=== PATIENT | female | born 2000 | race African-American/Black ===

== ENCOUNTER 2022-02-23 14:53 | Emergency (ER) | payer OTHER ==
--- OUTSIDE RECORDS SUMMARY | 2022-02-23 14:58 | XMS REPORT | Continuity of Care Document ---
:2000 Author Organization [facility] [place] t Address [address] [place] [address] Care Team Providers Name Role Phone SARA NUNEZ Primary Care Physician Unavailable Zuri Mr. Brandon Attending Clinician Unavailable KATE BAZZI Attending Clinician Unavailable MICHI COPPOLA Attending Clinician Unavailable Michi Herrera Attending Clinician DANIAL SARAVIA Attending Clinician Unavailable ALEYDA HARPER Attending Clinician Unavailable ALEYDA HARPER Attending Clinician Unavailable SARA NUNEZ Attending Clinician Unavailable RUDI NDIAYE Attending Clinician Unavailable Rudi Moody Attending Clinician ARIS DIAZ Attending Clinician Unavailable Kate Bazzi MD Attending Clinician KEERTHI ALEXANDER Attending Clinician Unavailable Keerthi Alexander DO Attending Clinician PHYLLIS HAWTHORNE Attending Clinician Unavailable Albertina Paniagua PA-C Attending Clinician Lory Jane MD Attending Clinician Phyllis Hawthorne MD Attending Clinician Naheed Contreras MD Attending Clinician [phone] Nurse, [facility] Attending Clinician Unavailable Yarima MD, Wakili S Attending Clinician JAYME VICENTE S Attending Clinician Unavailable Doctor Unassigned, [place] Attending Clinician Unavailable Weston CHAVEZP, Rose Key Attending Clinician Chandan ASSISTANT STORE MANAGER, Lobito B Attending Clinician Leo Soares DO Attending Clinician 2, [facility] Attending Clinician Unavailable Aris Diaz MD Attending Clinician DOMINGA POTTS Attending Clinician Unavailable Clau ASSISTANT STORE MANAGER, Dominga Attending Clinician [phone] ISABEL REBOLLAR Attending Clinician Unavailable ISABEL REBOLLAR Attending Clinician Unavailable Alexi Trejo Attending Clinician Triston ASSISTANT STORE MANAGER, Mg Attending Clinician Faustino Lawton MD Attending Clinician Grupo Chang DO Attending Clinician Provider, [facility] Care Attending Clinician Unavailable MG COLLADO Attending Clinician Unavailable Rey TURPIN, Juju S Attending Clinician Unavailable FAUSTINO LAWTON Attending Clinician Unavailable NAHEED CONTRERAS Attending Clinician Unavailable ELIAN GALINDO Attending Clinician Unavailable WINSTON COCHRAN Attending Clinician Unavailable Kali PORTER, Tania Quiroz Attending Clinician Winston Cochran MD Attending Clinician Ted Kat MD Attending Clinician Lopez Ramos MD Attending Clinician Unknown, Attending Attending Clinician Unavailable UNKNOWN, ATTENDING Attending Clinician Unavailable JANKI RODRIGUEZ Attending Clinician Unavailable LUCIUS SIMENTAL Attending Clinician Unavailable Lucius Simental APN Attending Clinician Dany Saldana MD Attending Clinician Humphrey Sanchez MD Attending Clinician MICHI COPPOLA Admitting Clinician Unavailable WINSTON COCHRAN Admitting Clinician Unavailable Winston Cochran MD Admitting Clinician LUCIUS SIMENTAL Admitting Clinician Unavailable Payers Payer Name Policy Type Policy Number Effective Date Expiration Date Samuel cochran [facility] [id number] 2017 00:00:00 [employer] PPO I [id number] 2019 00:00:00 Problems Condition Condition Condition Status Onset Resolution Last Treating Co mments Source Name Details Category Date Date Treatment Clinician Date Essential Essential Disease Active Uni vers hypertensi hypertensi 930 it y of on on 00:00: [place] 00 Medical Branch Urinary Urinary Disease Active Univers tract tract 30 [place] infection [place] without without 00 Medical hematuria, hematuria, Br anch site site unspecifie unspecifie d d CAMARILLO CAMARILLO Disease Active Univers (nonalcoho (nonalcoho 02-08 it y of lic lic 00:00: [place] steatohepa steatohepa 00 Az dical titis) titis) Branch Eczema, Eczema, Disease Active Univers unspecifie unspecifie 02-08 it y of d type d type 00:00: [place] 00 Medical Branch Anxiety Anxiety Disease Active Univers and and 930 it[place] of depression [place] Pap smear Pap smear Disease Active Uni vers for for 930 ity of cervical cervical 00:00: [place] cancer cancer 00 Medical screening screening Bran ch HPV HPV Disease Active [facility] vaccine vaccine 30 ity of counseling counseling [place] Need for Need for Disease Active Unive rs Tdap Tdap 30 ity of vaccinatio vaccinatio 00:[place] 00 Medical Branch Body mass Body mass Disease Active Uni vers index index 9-30 ity of (BMI) (BMI) 00:00: [place] 45.0-49.9, 45.0-49.9, 00 Az dical adult adult Branch Need for Need for Disease Active Unive rs influenza influenza 9-30 ity of vaccinatio vaccinatio 00:[place] 00 Medical [place] Acute Acute Disease Active Univers appendicit appendicit 5-24 it y of is is 00:00: [place] 00 Medical Branch Intentiona Intentiona Disease Active 2017-05 U nivers l drug l drug 2-12 ity of overdose, overdose, 00:00: Luis Fernando stallings initial initial 00 Medical encounter encounter Bran ch 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, disorder, 00:00: [place] stallings recurrent recurrent 00 [facility] episode, episode, Branch moderate moderate Social Social Disease Active Univers phobia phobia 9-27 ity of 00:00: [place] 00 Medical Branch Morbid Morbid Disease Active Univers obesity obesity 3-14 ity of with body with body 00:00: [place] Fernando stallings mass index mass index 00 Me dical of of Branch 40.0-49.9 40.0-49.9 Intentiona Intentiona Disease Active U nivers l overdose l overdose 3-14 it y of of drug in of drug in [place] tablet tablet 00 Medical form form Branch Severe Severe Disease Active Univers single single 3-14 ity of current current 00:00: [place] episode of episode of 00 Me dical major major Branch depressive depressive disorder, disorder, without without psychotic psychotic features features Allergies, Adverse Reactions, Alerts Allergy Allergy Status Severity Reaction(s) Onset Inactive Treating Comm ents Source Name Type Date Date Clinician Peanut Propensi Active Hives 2016-05 Univers ty to 2-22 ity of adverse 00:00: [place] reaction 00 Medical s Branch PEANUT DRUG Active Hives 2016-05 Univers INGREDI 2-22 ity of 00:00: [place] 00 Medical Branch Social History Social Habit Start Date Stop Date Quantity Comments Source Alcohol intake 2021-12-29 2021-12-29 Current University of 00:00:00 00:00:00 non-drinker of [facility] alcohol (finding) Branch Exposure to 2021-09-23 2021-10-03 Not sure [facility] SARS-CoV-2 00:00:00 13:24:00 [place] Medical (event) Branch History SDOH 2019-10-04 2019-10-04 4 University o f Financial 00:00:00 00:00:00 [place] [facility] History SDNE Food 2019-10-04 2019-10-04 1 Univers ity of Worry 00:00:00 00:00:00 [place] [facility] History [facility] Food 2019-10-04 2019-10-04 1 Univers ity of Scarcity 00:00:00 00:00:00 [place] [facility] History [facility] 2019-10-04 2019-10-04 2 University o f Transport Med 00:00:00 00:00:00 [facility] Branch History [facility] 2019-10-04 2019-10-04 2 University o f Transport Non-Med 00:00:00 [facility]:00 [facility] [place] Tobacco use and 2017-07-23 2017-07-23 Smokeless tobacco Un iversity of exposure 00:00:00 00:00:[address] [facility] Sex Assigned At [birth year] Universit y of 00:00:00 00:00:00 [facility] Smoking Status Start Date Stop Date Source Never smoked tobacco [facility] Medications Ordered Filled Start Stop Current Ordering Indication Dosage Frequency Signature Comments Components Source Medication Medication Date Date Medication? Clinician (SIG) Name Name ketorolac 2021- No 30mg 30 mg, Unive rs (TORADOL) 12-29 Intramuscu ity of injection 23:00: 22:58 [place], ONCE, [place] 30 mg 00 :00 1 dose, On Medical Sat Branch 12/29/21 at 1800, JUAN ondansetron Yes [id number] 4mg Take 1 Univers 4 mg 5-25 tablet by ity of disintegrat 00:00: mouth [place] ing tablet 00 every 8 Medica l (eight) Branch hours as needed for Nausea and Vomiting (N/V). ondansetron Yes [id number] 4mg Take 1 Univers 4 mg 5-25 tablet by ity of disintegrat 00:00: mouth [place] ing tablet 00 every 8 Medica l (eight) Branch hours as needed for Nausea and Vomiting (N/V). fluconazole 2020-05- No [id number] 150mg Take 1 Univers 150 mg 06-02 tablet by ity of tablet 00:00: 05:59 [place] 00 :[place] now for 1 Medical dose. Branch benzonatate 2020- No [id number] 100mg Take 1 Univers 100 mg 12-18 capsule by ity of capsule 00:00: 00:00 mouth 3 [place] 00 :00 (three) Medical times Branch daily as needed for Cough. AMLODIPINE- 2020-0 Yes [id number] TAKE 1 Univers BENAZEPRIL 6-30 CAPSULE BY ity of 10-20 mg 00:00: MOUTH [place] per capsule 00 EVERY DAY Med ical Branch AMLODIPINE- 2020-0 Yes [id number] TAKE 1 Univers BENAZEPRIL 6-30 CAPSULE BY ity of 10-20 mg 00:00: MOUTH [place] per capsule 00 EVERY DAY Med ical Branch AMLODIPINE- 2020-0 Yes [id number] TAKE 1 Univers BENAZEPRIL 6-30 CAPSULE BY ity of 10-20 mg 00:00: MOUTH [place] per capsule 00 EVERY DAY Med ical Branch AMLODIPINE- 2020-0 Yes [id number] TAKE 1 Univers BENAZEPRIL 6-30 CAPSULE BY ity of 10-20 mg 00:00: MOUTH [place] per capsule 00 EVERY DAY Med ical Branch AMLODIPINE- 2020-0 Yes [id number] TAKE 1 Univers BENAZEPRIL 6-30 CAPSULE BY ity of 10-20 mg 00:00: MOUTH [place] per capsule 00 EVERY DAY Med ical Branch AMLODIPINE- 2020-0 Yes [id number] TAKE 1 Univers BENAZEPRIL 6-30 CAPSULE BY ity of 10-20 mg 00:00: MOUTH [place] per capsule 00 EVERY DAY Med ical Branch AMLODIPINE- 2020-0 Yes [id number] TAKE 1 Univers BENAZEPRIL 6-30 CAPSULE BY ity of 10-20 mg 00:00: MOUTH [place] per capsule 00 EVERY DAY Med ical Branch butalbital- 2020-0 Yes [id number] 1{tbl} Take 1 Univers acetaminoph 6-27 tablet by ity of en-caff 00:00: mouth [place] 50-325-40 00 every 6 Medical mg tablet (six) Branch hours as needed (Headache) . butalbital- 2020-0 Yes [id number] 1{tbl} Take 1 Univers acetaminoph 6-27 tablet by ity of en-caff 00:00: mouth [place] 50-325-40 00 every 6 Medical mg tablet (six) Branch hours as needed (Headache) . butalbital- 2020-0 Yes [id number] 1{tbl} Take 1 Univers acetaminoph 6-27 tablet by ity of en-caff 00:00: mouth [place] 50-325-40 00 every 6 Medical mg tablet (six) Branch hours as needed (Headache) . butalbital- Yes [id number] 1{tbl} Take 1 Univers acetaminoph 6-27 tablet by ity of en-caff 00:00: mouth [place] 50-325-40 00 every 6 Medical mg tablet (six) Branch hours as needed (Headache) . butalbital- Yes [id number] 1{tbl} Take 1 Univers acetaminoph 6-27 tablet by ity of en-caff 00:00: mouth [place] 50-325-40 00 every 6 Medical mg tablet (six) Branch hours as needed (Headache) . butalbital- Yes [id number] 1{tbl} Take 1 Univers acetaminoph 6-27 tablet by ity of en-caff 00:00: mouth [place] 50-325-40 00 every 6 Medical mg tablet (six) Branch hours as needed (Headache) . butalbital- Yes [id number] 1{tbl} Take 1 Univers acetaminoph 6-27 tablet by ity of en-caff 00:00: mouth [place] 50-325-40 00 every 6 Medical mg tablet (six) Branch hours as needed (Headache) . ondansetron 2020- No [id number] 4mg Take 1 Univers (ZOFRAN) 4 6-27 11-10 tablet by ity of mg tablet 00:00: 00:00 mouth [place] 00 :00 every 8 Medical (eight) Branch hours as needed for Nausea and Vomiting (N/V). metroNIDAZO 2020- No [id number] 500mg Take 1 Univers LE 500 mg 6-18 11-10 tablet by ity of tablet 00:00: 00:00 mouth [place] 00 :00 every 12 Medical (twelve) Branch hours. meclizine Yes [id number] 25mg Take 1 U nivers 25 mg 5-25 tablet by ity of tablet 00:00: mouth [place] 00 every 6 Medical (six) Branch hours as needed for Dizziness. meclizine Yes [id number] 25mg Take 1 U nivers 25 mg 5-25 tablet by ity of tablet 00:00: mouth [place] 00 every 6 Medical (six) Branch hours as needed for Dizziness. meclizine 2020-0 Yes [id number] 25mg Take 1 U nivers 25 mg 5-25 tablet by ity of tablet 00:00: mouth [place] 00 every 6 Medical (six) Branch hours as needed for Dizziness. meclizine 2020-0 Yes [id number] 25mg Take 1 U nivers 25 mg 5-25 tablet by ity of tablet 00:00: mouth [place] 00 every 6 Medical (six) Branch hours as needed for Dizziness. meclizine 2020-0 Yes [id number] 25mg Take 1 U nivers 25 mg 5-25 tablet by ity of tablet 00:00: mouth [place] 00 every 6 Medical (six) Branch hours as needed for Dizziness. meclizine 2020-0 Yes [id number] 25mg Take 1 U nivers 25 mg 5-25 tablet by ity of tablet 00:00: mouth [place] 00 every 6 Medical (six) Branch hours as needed for Dizziness. meclizine 0 Yes [id number] 25mg Take 1 U nivers 25 mg 5-25 tablet by ity of tablet 00:00: mouth [place] 00 every 6 Medical (six) Branch hours as needed for Dizziness. ondansetron 2020- No [id number] 4mg Take 1 Univers 4 mg 5-25 11-10 tablet by ity of disintegrat 00:00: 00:00 [place] tablet 00 :00 every 12 Medic al (twelve) Branch hours as needed for Nausea and Vomiting (N/V). levothyroxi Yes [id number] 50ug Take 1 Univers ne 50 mcg 3-19 tablet by ity o f tablet 00:00: mouth [place] 00 every Medical morning. Branch levothyroxi 2020-0 Yes [id number] 50ug Take 1 Univers ne 50 mcg 3-19 tablet by ity o f tablet 00:00: mouth [place] 00 every Medical morning. Branch levothyroxi 2020-0 Yes [id number] 50ug Take 1 Univers ne 50 mcg 3-19 tablet by ity o f tablet 00:00: mouth [place] 00 every Medical morning. Branch levothyroxi 2020-0 Yes [id number] 50ug Take 1 Univers ne 50 mcg 3-19 tablet by ity o f tablet 00:00: mouth [place] 00 every Medical morning. Branch levothyroxi 0 Yes [id number] 50ug Take 1 Univers ne 50 mcg 3-19 tablet by ity o f tablet 00:00: mouth [place] 00 every Medical morning. Branch levothyroxi 0 Yes [id number] 50ug Take 1 Univers ne 50 mcg 3-19 tablet by ity o f tablet 00:00: mouth [place] 00 every Medical morning. Branch levothyroxi 0 Yes [id number] 50ug Take 1 Univers ne 50 mcg 3-19 tablet by ity o f tablet 00:00: mouth [place] 00 every Medical morning. [place] hydrOXYzine 2019-05- No [id number] TAKE 1 OR Univers 25 mg -30 11-10 2 TABLETS ity of tablet 00:00: 00:00 BY MOUTH [place] 00 :00 EVERY DAY Medical AT BEDTIME Branch NEEDED FOR ITCHING fluocinolon 2019-05 Yes [id number] Apply to Univers e 1-02 area(s) 3 ity of (DERMA-SMOO 00:00: (three) [place] THE/FS BODY 00 times Medical OIL) 0.01 % daily. Branch body oil triamcinolo 2019-05 Yes [id number] Apply to Univers ne 1-02 area(s) 2 ity of acetonide 00:00: (two) [place] 0.1 % 00 times Medical ointment daily. Branch tacrolimus 2019-05 Yes [id number] Apply to Univers (PROTOPIC) 1-02 area(s) 2 ity of 0.1 % 00:00: (two) [place] ointment 00 times Medical daily. Branch fluocinolon 2019- Yes [id number] Apply to Univers e 1-02 area(s) 3 ity of (DERMA-SMOO 00:00: (three) [place] THE/FS BODY 00 times Medical OIL) 0.01 % daily. Branch body oil triamcinolo 2019- Yes [id number] Apply to Univers ne 1-02 area(s) 2 ity of acetonide 00:00: (two) [place] 0.1 % 00 times Medical ointment daily. Branch tacrolimus 2019- Yes [id number] Apply to Univers (PROTOPIC) 1-02 area(s) 2 ity of 0.1 % 00:00: (two) [place] ointment 00 times Medical daily. Branch fluocinolon 2019- Yes [id number] Apply to Univers e 1-02 area(s) 3 ity of (DERMA-SMOO 00:00: (three) [place] THE/FS BODY 00 times Medical OIL) 0.01 % daily. Branch body oil triamcinolo 2020- Yes [id number] Apply to Univers ne 1-02 area(s) 2 ity of acetonide 00:00: (two) [place] 0.1 % 00 times Medical ointment daily. Branch tacrolimus 2020- Yes [id number] Apply to Univers (PROTOPIC) 1-02 area(s) 2 ity of 0.1 % 00:00: (two) [place] ointment 00 times Medical daily. Branch fluocinolon 2020- Yes [id number] Apply to Univers e 1-02 area(s) 3 ity of (DERMA-SMOO 00:00: (three) [place] THE/FS BODY 00 times Medical OIL) 0.01 % daily. Branch body oil triamcinolo 2020- Yes [id number] Apply to Univers ne 1-02 area(s) 2 ity of acetonide 00:00: (two) [place] 0.1 % 00 times Medical ointment daily. Branch tacrolimus 2020- Yes [id number] Apply to Univers (PROTOPIC) 1-02 area(s) 2 ity of 0.1 % 00:00: (two) [place] ointment 00 times Medical daily. Branch fluocinolon 2020- Yes [id number] Apply to Univers e 1-02 area(s) 3 ity of (DERMA-SMOO 00:00: (three) [place] THE/FS BODY 00 times Medical OIL) 0.01 % daily. Branch body oil triamcinolo 2020- Yes [id number] Apply to Univers ne 1-02 area(s) 2 ity of acetonide 00:00: (two) [place] 0.1 % 00 times Medical ointment daily. Branch tacrolimus 2020- Yes [id number] Apply to Univers (PROTOPIC) 1-02 area(s) 2 ity of 0.1 % 00:00: (two) [place] ointment 00 times Medical daily. Branch fluocinolon 2020- Yes [id number] Apply to Univers e 1-02 area(s) 3 ity of (DERMA-SMOO 00:00: (three) [place] THE/FS BODY 00 times Medical OIL) 0.01 % daily. Branch body oil triamcinolo 2020-1 Yes [id number] Apply to Univers ne 1-02 area(s) 2 ity of acetonide 00:00: (two) [place] 0.1 % 00 times Medical ointment daily. Branch tacrolimus 2020-1 Yes [id number] Apply to Univers (PROTOPIC) 1-02 area(s) 2 ity of 0.1 % 00:00: (two) [place] ointment 00 times Medical daily. Branch fluocinolon 2020-1 Yes [id number] Apply to Univers e 1-02 area(s) 3 ity of (DERMA-SMOO 00:00: (three) [place] THE/FS BODY 00 times Medical OIL) 0.01 % daily. Branch body oil triamcinolo 2020-1 Yes [id number] Apply to Univers ne 1-02 area(s) 2 ity of acetonide 00:00: (two) [place] 0.1 % 00 times Medical ointment daily. Branch tacrolimus 2020-1 Yes [id number] Apply to Univers (PROTOPIC) 1-02 area(s) 2 ity of 0.1 % 00:00: (two) [place] ointment 00 times Medical daily. Branch triamcinolo 2020-0 Yes [id number] Apply to Univers ne 9-30 area(s) 2 ity of acetonide 00:00: (two) [place] 0.1 % cream 00 times Medical daily. Branch hydrOXYzine 2020-0 Yes [id number] 25mg Take 1 Univers 25 mg 9-30 tablet by ity of tablet 00:00: mouth [place] 00 every 8 Medical (eight) Branch hours as needed for Itching or Anxiety. triamcinolo 2020-0 Yes [id number] Apply to Univers ne 9-30 area(s) 2 ity of acetonide 00:00: (two) [place] 0.1 % cream 00 times Medical daily. Branch hydrOXYzine 2020-0 Yes [id number] 25mg Take 1 Univers 25 mg 9-30 tablet by ity of tablet 00:00: mouth [place] 00 every 8 Medical (eight) Branch hours as needed for Itching or Anxiety. triamcinolo 2020-0 Yes [id number] Apply to Univers ne 9-30 area(s) 2 ity of acetonide 00:00: (two) [place] 0.1 % cream 00 times Medical daily. Branch hydrOXYzine 2020-0 Yes [id number] 25mg Take 1 Univers 25 mg 9-30 tablet by ity of tablet 00:00: mouth [place] 00 every 8 Medical (eight) Branch hours as needed for Itching or Anxiety. triamcinolo 2020-0 Yes [id number] Apply to Univers ne 9-30 area(s) 2 ity of acetonide 00:00: (two) [place] 0.1 % cream 00 times Medical daily. Branch hydrOXYzine 2020-0 Yes [id number] 25mg Take 1 Univers 25 mg 9-30 tablet by ity of tablet 00:00: mouth [place] 00 every 8 Medical (eight) Branch hours as needed for Itching or Anxiety. triamcinolo 2020-0 Yes [id number] Apply to Univers ne 9-30 area(s) 2 ity of acetonide 00:00: (two) [place] 0.1 % cream 00 times Medical daily. Branch hydrOXYzine 2020-0 Yes [id number] 25mg Take 1 Univers 25 mg 9-30 tablet by ity of tablet 00:00: mouth [place] 00 every 8 Medical (eight) Branch hours as needed for Itching or Anxiety. triamcinolo 2020-0 Yes [id number] Apply to Univers ne 9-30 area(s) 2 ity of acetonide 00:00: (two) [place] 0.1 % cream 00 times Medical daily. Branch hydrOXYzine 2020-0 Yes [id number] 25mg Take 1 Univers 25 mg 9-30 tablet by ity of tablet 00:00: mouth [place] 00 every 8 Medical (eight) Branch hours as needed for Itching or Anxiety. triamcinolo 2020-0 Yes [id number] Apply to Univers ne 9-30 area(s) 2 ity of acetonide 00:00: (two) [place] 0.1 % cream 00 times Medical daily. Branch hydrOXYzine 2020-0 Yes [id number] 25mg Take 1 Univers 25 mg 9-30 tablet by ity of tablet 00:00: mouth [place] 00 every 8 Medical (eight) Branch hours as needed for Itching or Anxiety. ondansetron 2020-0 Yes [id number] 4mg Take 1 Univers 4 mg 9-24 tablet by ity of disintegrat 00:00: mouth [place] ing tablet 00 every 8 Medica l (eight) Branch hours as needed for Nausea and Vomiting (N/V). ondansetron 2020-0 Yes [id number] 4mg Take 1 Univers 4 mg 9-24 tablet by ity of disintegrat 00:00: mouth [place] ing tablet 00 every 8 Medica l (eight) Branch hours as needed for Nausea and Vomiting (N/V). ondansetron 2020-0 Yes [id number] 4mg Take 1 Univers 4 mg 9-24 tablet by ity of disintegrat 00:00: mouth [place] ing tablet 00 every 8 Medica l (eight) Branch hours as needed for Nausea and Vomiting (N/V). ondansetron 2020-0 Yes [id number] 4mg Take 1 Univers 4 mg 9-24 tablet by ity of disintegrat 00:00: mouth [place] ing tablet 00 every 8 Medica l (eight) Branch hours as needed for Nausea and Vomiting (N/V). ondansetron 2020-0 Yes [id number] 4mg Take 1 Univers 4 mg 9-24 tablet by ity of disintegrat 00:00: mouth [place] ing tablet 00 every 8 Medica l (eight) Branch hours as needed for Nausea and Vomiting (N/V). ondansetron 2020-0 2- No [id number] 4mg Take 1 Univers 4 mg 9-24 05-25 tablet by ity of disintegrat 00:00: 00:00 [place] tablet 00 :00 every 8 Medica l (eight) Branch hours as needed for Nausea and Vomiting (N/V). OXcarbazepi 2020-0 Yes Take by Uni vers ne 9-06 mouth. ity of (TRILEPTAL) 14:41: [place] 300 mg 19 Medical tablet Branch OXcarbazepi 2020-0 Yes Take by Uni vers ne 9-06 mouth. ity of (TRILEPTAL) 14:41: [place] 300 mg 19 Medical tablet Branch OXcarbazepi 2020-0 Yes Take by Uni vers ne 9-06 mouth. ity of (TRILEPTAL) 14:41: [place] 300 mg 19 Medical tablet Branch OXcarbazepi 2020-0 Yes Take by Uni vers ne 9-06 mouth. ity of (TRILEPTAL) 14:41: [place] 300 mg 19 Medical tablet Branch OXcarbazepi 2020-0 Yes Take by Uni vers ne 9-06 mouth. ity of (TRILEPTAL) 14:41: [place] 300 mg 19 Medical tablet Branch OXcarbazepi 2020-0 Yes Take by Uni vers ne 9-06 mouth. ity of (TRILEPTAL) 14:41: [place] 300 mg 19 Medical tablet Branch OXcarbazepi 2020-0 Yes Take by Uni vers ne 9-06 mouth. ity of (TRILEPTAL) 14:41: [place] 300 mg 19 Medical tablet Branch ibuprofen 2020-0 Yes [id number] 600mg Take 1 Univers 600 mg 2-23 [id number] tablet by ity of tablet 00:00: mouth [place] 00 every 6 Medical (six) Branch hours as needed for Pain (scale 1-3). ibuprofen 2020-0 Yes [id number] 600mg Take 1 Univers 600 mg 2-23 [id number] tablet by ity of tablet 00:00: mouth [place] 00 every 6 Medical (six) Branch hours as needed for Pain (scale 1-3). ibuprofen 2020-0 Yes [id number] 600mg Take 1 Univers 600 mg 2-23 [id number] tablet by ity of tablet 00:00: mouth [place] 00 every 6 Medical (six) Branch hours as needed for Pain (scale 1-3). ibuprofen 2020-0 Yes [id number] 600mg Take 1 Univers 600 mg 2-23 [id number] tablet by ity of tablet 00:00: mouth [place] 00 every 6 Medical (six) Branch hours as needed for Pain (scale 1-3). ibuprofen 2020-0 Yes [id number] 600mg Take 1 Univers 600 mg 2-23 [id number] tablet by ity of tablet 00:00: mouth [place] 00 every 6 Medical (six) Branch hours as needed for Pain (scale 1-3). ibuprofen 2020-0 Yes [id number] 600mg Take 1 Univers 600 mg 2-23 [id number] tablet by ity of tablet 00:00: mouth [place] 00 every 6 Medical (six) Branch hours as needed for Pain (scale 1-3). ibuprofen 2020-0 Yes [id number] 600mg Take 1 Univers 600 mg 2-23 [id number] tablet by ity of tablet 00:00: mouth [place] 00 every 6 Medical (six) Branch hours as needed for Pain (scale 1-3). Immunizations Ordered Filled Immunization Date Status Comments [facility] e Immunization Name Name Influenza Virus 2021-03-21 Completed Universit y of Vaccine Quad .5 mL 00:00:00 [place] Medical IM 6+ MO Branch Influenza Virus 2021-03-21 Completed Universit y of Vaccine Quad .5 mL 00:00:00 [place] Medical IM 6+ MO Branch Influenza Virus 2021-03-21 Completed Universit y of Vaccine Quad .5 mL 00:00:00 [place] Medical IM 6+ MO Branch Influenza Virus 2021-03-21 Completed Universit y of Vaccine Quad .5 mL 00:00:00 [place] Medical IM 6+ MO Branch Influenza Virus 2021-03-21 Completed Universit y of Vaccine Quad .5 mL 00:00:00 [place] Medical IM 6+ MO Branch Influenza Virus 2021-03-21 Completed Universit y of Vaccine Quad .5 mL 00:00:00 [place] Medical IM 6+ MO Branch Influenza Virus 2021-03-21 Completed Universit y of Vaccine Quad .5 mL 00:00:00 [place] Medical 6+ MO Branch HPV9 2021-02-26 Completed University of 00:00:00 [place] [facility] Branch HPV9 2021-02-26 Completed University of 00:00:00 [facility] HPV9 2021-02-26 Completed University of 00:00:00 [facility] HPV9 2021-02-26 Completed University of 00:00:00 [facility] HPV9 2021-02-26 Completed University of 00:00:00 [facility] HPV9 2021-02-26 Completed University of 00:00:00 [facility] HPV9 2021-02-26 Completed University of 00:00:00 [facility] HPV9 2020-10-26 Completed University of 00:00:00 [facility] HPV9 2020-10-26 Completed University of 00:00:00 [facility] HPV9 2020-10-26 Completed University of 00:00:00 [facility] HPV9 2020-10-26 Completed University of 00:00:00 [facility] HPV9 2020-10-26 Completed University of 00:00:00 [facility] HPV9 2020-10-26 Completed University of 00:00:00 [facility] HPV9 2020-10-26 Completed University of 00:00:00 [facility] HPV9 2020-03-21 Completed University of 00:00:00 [facility] HPV9 2020-03-21 Completed University of 00:00:00 [facility] HPV9 2020-03-21 Completed University of 00:00:00 [facility] HPV9 2020-03-21 Completed University of 00:00:00 [facility] HPV9 2020-03-21 Completed University of 00:00:00 [facility] HPV9 2020-03-21 Completed University of 00:00:00 [facility] HPV9 2020-03-21 Completed University of 00:00:00 [facility] Vital Signs Vital Name Observation Time Observation Value Comments Source Systolic blood 2021-12-29 21:27:00 152 mm[Hg] Univer sity of pressure [facility] Diastolic blood 2021-12-29 21:27:00 81 mm[Hg] Unive rsity of pressure [facility] Heart rate 2021-12-29 21:27:00 109 /min Universi ty of [facility] Body temperature 2021-12-29 21:27:00 37.5 Andie Univ ersity of [facility] Respiratory rate 2021-12-29 21:27:00 16 /min Univ ersity of [facility] Body height 2021-12-29 21:27:00 165.1 cm Universi ty of [facility] [place] [facility] [place] Body weight 2021-12-29 21:27:00 132.45 kg Universi ty of [facility] BMI 2021-12-29 21:27:00 48.59 kg/m2 Universi ty of [facility] [place] Oxygen saturation in 2021-12-29 21:27:00 97 /min University of Arterial blood by [facility] Pulse oximetry Branch Systolic blood 2021-10-03 20:49:00 134 mm[Hg] Univer sity of pressure [facility] Diastolic blood 2021-10-03 20:49:00 70 mm[Hg] Unive rsity of pressure [facility] Heart rate 2021-10-03 20:49:00 98 /min Universi ty of [facility] Body temperature 2021-10-03 20:49:00 38.33 Andie Univ ersity of [facility] Respiratory rate 2021-10-03 20:49:00 20 /min Univ ersity of [facility] Oxygen saturation in 2021-10-03 20:49:00 99 /min University of Arterial blood by [facility] Pulse oximetry Branch Body height 2021-10-03 18:25:00 165.1 cm Universi ty of [facility] [place] Body weight 2021-10-03 18:25:00 128.368 kg Universi ty of [facility] BMI 2021-10-03 18:25:00 47.09 kg/m2 Universi ty of [facility] Heart rate 2021-07-09 19:37:12 103 /min Universi ty of [facility] Respiratory rate 2021-07-09 19:37:12 18 /min [facility] Oxygen saturation in 2021-07-09 19:37:12 99 /min University of Arterial blood by [facility] Pulse oximetry Branch Systolic blood 2021-07-09 19:30:00 138 mm[Hg] Univer sity of pressure [facility] Diastolic blood 2021-07-09 19:30:00 81 mm[Hg] Unive rsity of pressure [facility] Body temperature 2021-07-09 19:30:00 36.78 And[address] [facility] Body height 2021-07-09 19:30:00 165.[address] [facility] Body weight 2021-07-09 19:30:00 131.543 kg Universi ty of [facility] BMI 2021-07-09 19:30:00 48.26 kg/m2 Universi ty of [facility] Systolic blood 2021-03-21 15:21:00 137 mm[Hg] Univer sity of pressure [facility] Diastolic blood 2021-03-21 15:21:00 77 mm[Hg] Unive rsity of pressure [facility] Heart rate 2021-03-21 15:21:00 89 /min Universi ty of [facility] Body temperature 2021-03-21 15:21:00 37.17 Andie Univ ersity of [facility] Respiratory rate 2021-03-21 15:21:00 18 /min Univ ersity of [facility] Body height 2021-03-21 15:21:00 167.6 cm Universi ty of [place] [facility] [place] Body weight 2021-03-21 15:21:00 139[address] [facility] BMI 2021-03-21 15:21:00 49.55 kg/m2 Universi ty of [facility] Procedures Procedure Date / Time Performing Clinician Source Performed POCT TEST 2021-12-29 22:49:[address] [facility] XR CHEST 2 VW 2021-12-29 22:10:42 Michi Coppola [facility] FREE T4 2021-12-29 21:57:00 Michi Coppola [facility] THYROID STIMULATING 2021-12-29 21:57:[address] [facility] HORMONE [facility] Branch COMP. METABOLIC PANEL 2021-12-29 21:57:00 Michi Coppola [facility] ([address]) Medical Branch CBC WITH DIFF 2021-12-29 21:57:00 Michi Coppola [facility] D-DIMER 2021-12-29 21:57:00 Michi Coppola [facility] URINALYSIS 2021-12-29 21:57:00 Michi Coppola [facility] FREE T3 2021-12-29 21:57:00 Michi Coppola [facility] CONSENT/REFUSAL FOR 2021-12-29 21:18:25 Doctor Unassigned, No [facility] Branch RAPID INFLUENZA A/B 2021-10-03 18:30:[address] [facility] COVID-19 (ID NOW RAPID 2021-10-03 18:30:00 Grupo Chang [facility] TESTING) Medical Branch CONSENT/REFUSAL FOR 2021-10-03 18:17:43 Doctor Unassigned, No Un iversity [facility] [place] DIAGNOSIS AND TREATMENT Name Medical Branch CONSENT/REFUSAL FOR 2021-07-09 19:22:51 Doctor Unassigned, No Un iversity of [place] DIAGNOSIS AND TREATMENT Name Medical Branch NOTICE OF PRIVACY 2021-07-09 19:22:36 Doctor Unassigned, No [facility] PRACTICES Name Medical Branch FLU VACC ([id number]), 2021-03-21 15:32:00 Lory Jane [facility] 6+ MONTHS, IM, QUAD Medical Bran ch Encounters Start End Encounter Admission Attending Care Care Encounter Source Date/Time Date/Time Type Type Clinicians Facility Department ID 2021-07-17 Outpatient KELSIE IGLESIAS [id number] TAISHA 08:33:52 [id number] [facility] 2021-06-08 Outpatient Zuri, [facility] [id number] [place] 09:55:12 Aleksandr 0.0- Coas t [facility] 2021-06-07 Outpatient Zuri [facility] [id number] [place] 09:10:55 Aleksandr 0.0- Coas t [facility] 2021-06-07 Outpatient Zuri, [facility] [id number] [place] 09:10:41 Aleksandr 0.0- Coas t 18 [facility] 2021-03-12 Emergency [facility] [id number] Univers 04:05:[address] [facility] 2021-03-12 Emergency [facility] [id number] Univers 00:52:[address] [facility] 2021-03-11 Emergency [facility] [id number] Univers 21:08:48 ity [facility] 2021-03-09 Emergency [facility] [id number] Univers 20:49:[address] [facility] 2021-03-09 Emergency [facility] [id number] Univers 19:10:13 ity [facility] 2022-01-04 2022-01-04 [facility] [id number] Univers 13:00:00 13:00:00 KATE ity [facility] 2021-12-29 2021-12-29 Emergency X [facility] ERT [id number] Univers 16:29:00 18:10:00 MICHI ity [facility] 2021-12-29 2021-12-29 Emergency [facility] [id number] [id number] Univers 16:29:00 18:10:00 Michi WILCOX 350.1.13.10 i ty [facility] [id number] [facility] [id number] [place] [address] Branch 2021-10-29 2021-10-29 Outpatient R RANI [facility] [id number] Univers 15:20:00 15:20:[address] o f [facility] 2021-10-24 2021-10-24 Outpatient R ALEYDA HARPER [facility] [id number] Univers 12:00:00 12:00:[address] [facility] 2021-10-04 2021-10-04 Outpatient Yesi NUNEZ [facility] [id number] Univers 16:00:00 16:00:00 SARA tito [facility] 2021-10-03 2021-10-03 Emergency X LAWANDA [facility] ERT [id number] Univers 13:31:00 15:53:[address] [facility] 2021-10-03 2021-10-03 Emergency [facility] [id number] Univers 13:31:00 15:53:00 Rudi WILCOX 350.1.13.10 i ty of [place] 4.2.7.2.686 [facility] [phone] [address] 2021-10-01 2021-10-01 Outpatient [facility] [id number] Univers 09:30:00 09:30:00 ARIS tito [facility] 2021-09-27 2021-09-27 Telephone [facility] 1.2.840.114 [id number] Univers 00:00:00 00:00:00 Kate WILCOX 350.1.13.10 i ty of [place] 4.2.7.2.686 [facility] [id number] Az dic[address] 2021-08-03 2021-08-03 Outpatient Yes[facility] [id number] Univers 11:30:00 11:30:00 ARISSUMIT ahuja [facility] 2021-08-03 2021-08-03 Outpatient Yesi [facility] [id number] Univers 09:00:00 09:00:00 ARIS seymour [facility] 2021-07-09 2021-07-09 [facility] [id number] Univers 13:39:00 13:55:00 KEERTHI ahuja [facility] 2021-07-09 2021-07-09 Emergency [facility] 1.2.840.114 [id number] Univers 13:39:00 13:55:00 Keerthi WILCOX 350.1.13.10 ity [facility] [place] [phone] [facility] 084 [place] 2021-04-17 2021-04-17 Outpatient R ADUM, [facility] [id number] Univers 08:00:00 08:00:00 PHYLLIS ity [facility] 2021-04-03 2021-04-03 Telephone [facility] 1.2.840.114 [id number] Univers 00:00:00 00:00:00 Albertina WILCOX 350.1.13.10 i ty [facility] [place] [id number] Az dical NAL [address] [place] [address] 2021-04-02 2021-04-02 Case [facility] 1.2.032.347 [id number] Univers 00:00:00 00:00:00 Management Albertina WILCOX 350.1.13.10 ity of [place] 4.[place].7.2.[place] [phone] Az dical NAL [address] [place] [address] 2021-03-21 2021-03-21 Outpatient R ADUM, [facility] [id number] Univers 09:00:00 10:00:49 PHYLLIS ittito [facility] 2021-03-21 2021-03-21 Outpatient R ADUM, [facility] [id number] Univers 09:00:00 10:00:49 PHYLLIS ittito [facility] 2021-03-21 2021-03-21 Office Lory Jane [facility] 1.2.840.114 [id number] Univers 08:50:18 10:00:49 Visit AdcucaPhyllis 350.1.13.10 ity of [facility] 4.2.7.[place] [id number] Az dical NAL [address] [place] [address] 2021-03-20 2021-03-20 Telephone [facility] 1.2.840.114 [id number] Univers 00:00:00 00:00:00 Naheed WILCOX 350.1.13.10 ity [facility] 4.[place] [phone] Az dical NAL 231 [facility] 2021-02-26 2021-02-26 Nurse Nurse, [facility] 1.2.840.114 [id number] Univers 10:15:01 11:14:25 Visit Marine Phyllis Nicole Wilcox 350.1.13.10 [place] [phone] Az dical nal 134 [facility] 2021-02-26 2021-02-26 Outpatient R [facility] [id number] Univers 10:30:00 10:30:[address] [facility] 2020-12-18 2020-12-18 Emergency [facility] 1.2.277.955 [id number] Univers 22:29:00 23:25:00 Michi Wilcox 350.1.13.10 i ty of [place] [id number] [place] [id number] 2020-12-18 2020-12-18 Emergency X [facility] ERT [id number] Univers 22:29:00 23:25:[address] [facility] 2020-11-08 2020-11-08 Refcharlotte [facility] 1.2.840.114 [id number] Univers 00:00:00 00:00:00 Kate Wilcox 350.1.13.10 [place] [phone] Az dical nal 044 [facility] 2020-11-04 2020-11-05 Emergency [facility] 1.2.679.933 [id number] Univers 22:40:00 02:20:00 Jayme [place] 350.1.13.10 [place]y of [place] 4.2.7.2.686 [facility] [id number] [address] 2020-11-04 2020-11-05 Emergency X [facility] ERT [id number] Univers 22:40:00 02:20:00 JAYME ity [facility] 2020-10-27 2020-10-27 Outpatient R ADUM, [facility] [id number] Univers 11:00:00 11:00:00 PHYLLIS ahuja [facility] 2020-10-27 2020-10-27 Case Ad, [facility] 1.2.840.114 [id number] Univers 00:00:00 00:00:00 Management Phyllis Nicole Wilcox 350.1.13.10 [place] [phone] Az dical [address] 2020-10-26 2020-10-26 Office [facility] 1.2.840.114 [id number] Univers 10:18:39 11:38:09 Visit Phyllis Nicole Wilcox 350.1.13.10 [place] [phone] Az dic[address] 2020-10-26 2020-10-26 Outpatient R AD, [facility] [id number] Univers 10:30:00 10:30:00 PHYLLIS ahuja [facility] 2020-10-26 2020-10-26 Orders Doctor CAMRON 1.2.840.114 [id number] Univers 00:00:00 00:00:00 Only Unassigned, REGINA 350.1.13.10 ity of [place] [facility] 4.2.7.2.686 Joel as [phone] [facility] 009 [place] 2020-10-22 2020-10-22 Emergency [facility], [facility] 1.2.202.248 [id number] Univers 11:12:00 11:25:00 Rose Wilcox 350.1.13.10 i ty [place] [phone] [facility] 084 [place] 2020-10-22 2020-10-22 Orders Doctor CAMRON 1.2.840.114 [id number] Univers 00:00:00 00:00:00 Only Unassigned, REGINA 350.1.13.10 ity of [place] [facility] 4.2.7.2.686 Joel as [phone] [facility] 009 [place] 2020-10-10 2020-10-10 Out[facility] [id number] Univers 11:00:00 11:00:00 PHYLLIS tito [facility] 2020-10-03 2020-10-03 Emergency [facility] 1.2.840.114 [id number] Univers 11:06:00 12:38:00 Lobito Wilcox 350.1.13.10 i ty [place] [phone] [facility] 084 [place] 2020-10-03 2020-10-03 Orders Doctor CAMRON 1.2.840.114 [id number] Univers 00:00:00 00:00:00 Only Unassigned, REGINA 350.1.13.10 ity of [place] [facility] 4.2.7.2.686 Joel as [phone] [facility] 009 [place] 2020-09-05 2020-09-05 Out[facility] [id number] Univers 13:00:00 13:00:00 PHYLLIS tito [facility] 2020-08-29 2020-08-29 Outpatient [facility] [id number] Univers 13:00:00 13:00:00 KATE tito [facility] 2020-08-11 2020-08-11 Refill [facility] 1.2.840.114 [id number] Univers 00:00:00 00:00:00 Kate Wilcox 350.1.13.10 i ty of [place] [phone] Me dical nal 044 Branch Building 2020-08-01 2020-08-01 Patient [facility] 1.2.840.114 [id number] Univers 00:00:00 00:00:00 Outreach Leo RED 350.1.13.10 i ty of [place]2.7.2.686 [place] [facility] [phone] Me dical [address] Branch 2020-07-31 2020-07-31 [employer] Supervisor 2, Adc Lab [facility] 1.2.840.114 [id number] Univers 08:38:08 08:53:08 Visit Aris Diaz 350.1.13.10 ity [facility] 4.2.7.2.[place] [phone] Az dical nal 353 [facility] 2020-07-31 2020-07-31 Outpatient R [facility] [id number] Univers 08:45:00 08:45:00 ity [facility] 2020-07-28 2020-07-28 Office [facility] 1..552.320 [id number] Univers 15:54:52 16:35:19 Visit Aris Wilcox 350.1.13.10 i ty [facility] 4.2.7.2.[place] [phone] Az dical nal 220 [facility] 2020-07-28 2020-07-28 Outpatient [facility] [id number] Univers 16:00:00 16:00:[address] [facility] 2020-05-22 2020-05-22 Outpatient R [facility] [id number] Univers 14:00:00 14:00:[address] [facility] 2020-05-16 2020-05-16 Outpatient [facility] [id number] Univers 10:40:00 10:40:[address] [facility] 2020-04-24 2020-04-24 Outpatient [facility] [id number] Univers 10:00:00 10:00:[address] [facility] 2020-04-04 2020-04-04 Refcharlotte PottsCIBOLA [facility] ..840.114 [id number] Univers 00:00:00 00:00:00 Dominga [place] [facility].13.10 [facility].7.2.[place] [phone] [address] [facility] 2020-03-30 2020-03-30 Telephone [facility] 1..122.475 [id number] Univers 00:00:00 00:00:00 Phyllis [place] 350.1.13.10 [place] [phone] Az dical nal 134 [facility] 2020-03-24 2020-03-24 Outpatient R EMILY [facility] [id number] Univers 10:30:00 10:30:00 ARIS ahuja [facility] 2020-03-21 2020-03-21 [employer] Power[employer] Supervisor 2, Adc Lab [facility] 1.2.840.114 [id number] Univers 10:18:42 10:33:42 Visit Phyllis Hawthorne 350.1.13.10 [place] [phone] Az dical nal 353 [facility] 2020-03-21 2020-03-21 Office [facility] 1..840.114 [id number] Univers 08:54:53 10:14:35 Visit Phyllis [place] 350.1.13.10 [place] [phone] Az dical nal 134 [facility] 2020-03-21 2020-03-21 Outpatient R MARINE [facility] [id number] Univers 09:00:00 09:00:00 PHYLLIS ahuja [facility] 2020-03-13 2020-03-13 Office [facility] 1..840.114 [id number] Univers 10:52:00 11:20:52 Visit Dominga [place] 350.1.13.10 ity of [place].2.[place] [phone] [facility] AND [address] [facility] 2020-03-13 2020-03-13 Outpatient R CLAU [facility] [id number] Univers 11:00:00 11:00:00 DOMINGA ahuja [facility] 2020-03-08 2020-03-08 Outpatient R ISABEL REBOLLAR [facility] [id number] Univers 16:45:00 16:45:00 ISABEL REBOLLAR i [facility] 2020-02-24 2020-02-24 Orders Doctor LYON 1.2.840.114 [id number] Univers 00:00:00 00:00:00 Only Unassigned, REGINA 350.1.13.10 ity of [place] [facility] 4.2.7.2.686 Joel as [phone] [address] 2020-02-11 2020-02-11 Emergency Alexi Ramierz [facility] 1.2.840.114 [id number] Univers 15:33:00 17:29:00 Jesika Wilcox 350.1.13.10 i ty [place] [phone] [address] 2020-02-11 2020-02-11 Orders Doctor CAMRON 1.2.840.114 [id number] Univers 00:00:00 00:00:00 Only Unassigned, REGINA 350.1.13.10 ity of [place] [facility] 4.2.7.2.686 Joel as [phone] [address] 2020-02-09 2020-02-09 [facility] 1.2.840.114 [id number] Univers 15:02:36 16:48:41 Visit Kate Wilcox 350.1.13.10 [place] ty [place] [phone] [address] 2020-02-09 2020-02-09 Outpatient [facility] [id number] Univers 15:20:00 15:20:[address] [facility] 2020-02-08 2020-02-08 Renae [facility] 1.2.840.114 [id number] Univers 00:00:00 00:00:00 [facility] 350.1.13.10 it y of [place] 4.2.7.2.686 Joel as Professio [phone] [address] Office Building One 2020-02-07 2020-02-07 Telephone [facility] 1.2.227.960 [id number] Univers 00:00:00 00:00:00 Faustino [place] 350.1.13.10 [place] [phone] [facility] 220 [facility] 2020-02-03 2020-02-03 Emergency Chang, [facility] 1.2.047.511 [id number] Univers 08:52:00 11:05:00 Grupo Ruthie 350.1.13.10 i ty nahed [place].2.[place] [phone] [facility] 084 [place] 2020-02-03 2020-02-03 Orders Doctor CAMRON 1.2.840.114 [id number] Univers 00:00:00 00:00:00 Only Unassigned, REGINA 350.1.13.10 ity of [place] [facility] 4.2.7.2.686 Joel as [phone] [facility] 009 [place] 2020-01-22 2020-01-22 Urgent Provider, [facility] 1.2.840.114 [id number] Univers 10:37:45 10:57:45 Care Triston [facility] 350.1.13.10 ity of [place] 4.2.7.2.686 Jeol as Professio [phone] [facility] 044 [place] Office [facility] 2020-01-22 2020-01-22 Outpatient R TRISTON, [facility] [id number] Univers 09:20:00 09:20:00 MG ity [facility] 2020-01-16 2020-01-16 Urgent Provider, [facility] 1.2.840.114 [id number] Univers 14:33:43 14:53:43 Care Triston [facility] 350.1.13.10 ity of [place] 4.2.7.2.686 Joel as Professio [phone] [address] Office Building One 2020-01-16 2020-01-16 Outpatient R TRISTON, [facility] [id number] Univers 14:40:00 14:40:00 MG ity [facility] 2020-01-16 2020-01-16 Nurse CAMRON Le 1.2.840.114 [id number] Univers 00:00:00 00:00:00 Triage Juju TAPIA 350.1.13.10 ity of [facility] 4.2.7.2.686 Joel as [phone] [facility] 019 [place] 2019-12-08 2019-12-08 Outpatient R JENARO, [facility] [id number] Univers 11:30:00 11:30:[address] [facility] 2019-11-19 2019-11-19 Outpatient R DIANE, [facility] [id number] Univers 13:40:00 13:40:[address] [facility] 2019-10-28 2019-10-28 Outpatient R LEONAPATTIISIDRA, [facility] [id number] Univers 14:00:00 14:00:[address] [facility] 2019-10-19 2019-10-19 Outpatient R MAIKTYE, [facility] [id number] Univers 16:00:00 16:00:[address] [facility] 2019-10-19 2019-10-19 Orders Doctor CAMRON 1.2.840.114 [id number] Univers 00:00:00 00:00:00 Only Unassigned, REGINA 350.1.13.10 ity of [facility] 4.2.7.2.686 Joel as [phone] [facility] 009 [place] 2019-10-17 2019-10-17 Case [facility] 1.2.840.114 [id number] Univers 00:00:00 00:00:00 Management Naheed Wilcox 350.1.13.10 ity [facility] [place]2.7.2.[place] [facility] [phone] Az dical [facility] 231 [facility] 2019-10-03 2019-10-05 Outpatient X SAMMIE [facility] [id number] Univers 19:10:42 12:19:00 WINSTON ahuja [facility] 2019-10-03 2019-10-05 Emergency Tania Bass [facility] 1.2.840 .114 [id number] Univers 19:10:42 12:19:00 Winston Cochran 350.1.13.10 ity [facility] 4.2.7.2.686 [place] [place] [id number] [facility] [address] [place] 2019-10-04 2019-10-04 [facility] [id number] Univers 09:15:00 11:03:00 Ted Truong Mobile [id number] [place] [phone] [facility] [address] [place] 2019-08-08 2019-08-08 [facility] [id number] Univers 00:00:00 00:00:00 [facility] [id number] it y of Surgical 4.2.7.2.686 Joel as Specialti [phone] Me dical es 370 [facility] 2019-08-04 2019-08-04 [facility]ici [facility] 1.2.840.114 [id number] Univers 08:28:10 13:26:56 ne Visit Faustino Mobile 350.1.13.10 [place] [phone] Az dical nal 220 [facility] 2019-08-04 2019-08-04 Outpatient R JENARO [facility] [id number] Univers 10:00:00 10:00:[address] [facility] 2019-07-30 2019-07-30 Outpatient R TUNDE [facility] [id number] Univers 14:40:00 14:40:00 KATE tito [facility] 2019-07-17 2019-07-17 Urgent Lopez Rmaos [facility] [id number] Univers 10:08:34 10:54:38 Care Unknown, Attending Health 350.1.13.10 ity of Surgical 4.2.7.2.686 Joel as Specialti [phone] Az dical es 370 [facility] 2019-07-17 2019-07-17 Outpatient R CRYSTAL, [facility] [id number] Univers 10:00:00 10:00:00 ATTENDING ity [facility] 2019-07-14 2019-07-14 Outpatient R JENNIFER [facility] [id number] Univers 09:45:00 09:45:00 [address] o f [facility] 2019-07-04 2019-07-04 Emergency X KAMILLE [facility] ERT [id number] Univers 16:49:25 19:19:00 LUCIUS ahuja [facility] 2019-07-04 2019-07-04 Emergency X KAMILLE GAMAYCOL ERT [id number] Univers 16:49:25 19:19:00 LUCIUS ahuja [facility] 2019-07-04 2019-07-04 Emergency Kamille [facility] [id number] Univers 16:49:25 19:19:00 Lucius Wilcox 350.1.13.10 [place] 4.2.7.2.686 [facility] [phone] [address] 2018-12-31 2018-12-31 Office Dany Saldana [facility] 1.2.840.114 [id number] [facility] 13:56:20 14:24:03 Visit Rip Ruthie 350.1.13.10 [place] 4.2.7.2.686 [facility] Professio [phone] Az dical [facility] 044 [facility] 2018-12-24 2018-12-24 Emergency Daniel [facility] [id number] [facility] 01:23:57 04:04:00 Cjtamela [place] 350.1.13.10 [place] 4.2.7.2.686 [facility] [phone] [address] Results Test Description Test Time Test Comments Results Result Comments Source THYROID STIMULATING HORMONE 2021-12-29 22:50:39 Test Item Value Reference Range Interpretation Comme nts TSH (test code = 7669006426) See_Comment [Automated message] The system which generated this result transmitted ref erence range: 0.45 - 4.70 mIU/L. T he reference range was not used to interpret this result as coretta l/abnormal. Lab Interpretation (test code = Normal 31404-1) [facility] [id number] 22:49:00 Test Item Value Reference Range Interpretation Comments POCT PREG (test code = 1605) negative On board controls acceptable with C present Line (test code = 3574) Lab Interpretation (test code = Normal 47460-0) [facility] [id number] 22:37:01 Test Item Value Reference Range Interpretation Comments FREE T4 (test code = See_Comment [Autom ated message] [id number]) The system [employer] generated this result transmitted ref erence range: 0.78 - 2 .20 ng/dL:. The ref erence range was not u sed to interpret this result as normal/abnor mal. Lab Interpretation (test Normal code = 40595-2) [facility] [id number] 22:36:41 Test Item Value Reference Range Interpretation Comments FREE T3 (test code = 1670256688) 3.76 pg/mL 2.77-5.27 Lab Interpretation (test code = Normal 62351-2) [facility]-[id number] 22:30:20 Test Item Value Reference Interpretation Comments Range D-DIMER (test code = See_Comment [Autom ated 8841341164) message] The system which generated this result transmitted reference range : <0.41 ?g/mL (FEU). The reference range was not used to interpret this result as normal/abnormal . LANA (test code = This test may be LANA) used in conjunction with a clinical pretest probability (PTP) assessment model to exclude venous thromboembolism (VTE) in patients suspected of deep venous thrombosis (DVT) and pulmonary embolism (PE) A D-Dimer value less than 0.50 ?g/ml (FEU) has a negative predicative value of 96 to 100% (95% CI)and 97 to 100% (95% CI) as an aid in the diagnosis of deep vein thrombosis (DVT) and pulmonary embolism when there is low or moderate pretest probability of PE or DVT. D-Dimer values are expressed in initial fibrinogen equivalent units (FEU)" The assay results should be used with other information, including the clinical context, in forming a diagnosis. Lab Interpretation Normal (test code = 36604-3) [facility]. METABOLIC PANEL ([id number] 22:20:56 Test Item Value Reference Range Interpretation Comments NA (test code = 138 mmol/L 135-145 8662945255) K (test code = 4.2 mmol/L 3.5-5 2656426551) CL (test code = 106 mmol/L 98-108 7680511045) CO2 TOTAL (test code = 25 mmol/L 23-31 6756082995) AGAP (test code = 2-16 3600206061) BUN (test code = 6 mg/dL 7-23 L 1628372248) GLUCOSE (test code = 100 mg/dL 70-110 5817945648) CREATININE (test code = 0.59 mg/dL 0.5-1.04 2113571068) TOTAL BILI (test code = 0.5 mg/dL 0.1-1.9 2803420842) CALCIUM (test code = 9.4 mg/dL 8.6-10.6 1477454354) T PROTEIN (test code = 7.0 g/dL 6.3-8.2 1029247948) ALBUMIN (test code = 4.3 g/dL 3.5-5 2516836163) ALK PHOS (test code = 70 U/L 34-122 5090169063) ALTv (test code = 70 U/L 5-35 H 1742-6) AST(SGOT) (test code = 54 U/L 13-40 H 8365820069) eGFR (test code = mL/min/1.73m2 1858345362) LANA (test code = LANA) Association of Glomerular Filtration Rate (GFR) and Staging of Kidney Disease* + --+ --+ ------+| GFR (mL/min/1.73 m2) ?| With Kidney Damage ?| ?Without Kidney Damage+ --------+ --------+ +| ?>90 ?| ?Stage one ?| ? Normal ?+ ---+ ---+ -------+| ?60-89 ?| ?Stage two ?| ? Decreased GFR ? + --+ --+ ------+| ?30-59 ?| ?Stage three ?| ? Stage three ? + --+ --+ ------+| ?15-29 ?| ?Stage four ? | ? Stage four ?+ ---+ ---+ -------+| ?<15 (or dialysis) ? ?| ?Stage five ? | ? Stage five ?+ ---+ ---+ -------+ *Each stage assumes the associated GFR level has been in effect for at least three months. ?Stages 1 to 5, with or without kidney disease, indicate chronic kidney disease. Notes: Determination of stages one and two (with eGFR >59mL/min/1.73 m2) requires estimation of kidney damage for at least three months as defined by structural or functional abnormalities of the kidney, manifested by either:Pathological abnormalities or Markers of kidney damage (including abnormalities in the composition of the blood or urine or abnormalities in imaging tests). Lab Interpretation Abnormal (test code = 06136-6) [facility] WITH [id number] 22:09:18 Test Item Value Reference Range Interpretation Comments WBC (test code = See_Comment [Automated 6690-2) message] The sy stem which generated this result transmitted reference range : 4.30 - 11.10 10*3/?L. The reference range was not used to interpret this result as normal/abnormal . RBC (test code = See_Comment [Automated 789-8) message] The sy stem which generated this result transmitted reference range : 3.93 - 5.25 10*6/?L. The reference range was not used to interpret this result as normal/abnormal . HGB (test code = 15.3 g/dL 11.6-15 H 718-7) HCT (test code = 42.2 % 35.7-45.2 4544-3) MCV (test code = 81.6 fL 80.6-95.5 787-2) MCH (test code = 29.6 pg 25.9-32.8 785-6) MCHC (test code = 36.3 g/dL 31.6-35.1 H 786-4) RDW-SD (test code = 38.5 fL 39-49.9 L 11837-2) RDW-CV (test code = 13.2 % 12-15.5 788-0) PLT (test code = See_Comment H [Automated 777-3) message] The sy stem which generated this result transmitted reference range : 166 - 358 10*3/ ?L. The reference r jennifer was not used to interpret this result as normal/abnormal . MPV (test code = 9.9 fL 9.5-12.9 09955-4) NRBC/100 WBC (test See_Comment [Automat ed code = 9490638097) message] The system which generated this result transmitted reference range : 0.0 - 10.0 /100 WBCs. The refer ence range was not u sed to interpret th is result as normal/abnormal . NRBC x10^3 (test code See_Comment [Auto mated = 4483087497) message] The s [employer] which generated this result transmitted reference range : 10*3/?L. The reference range was not used to interpret this result as normal/abnormal . GRAN MAT (NEUT) % 61.9 % (test code = 770-8) IMM GRAN % (test code 0.40 % = 1491178387) LYMPH % (test code = 30.4 % 736-9) MONO % (test code = 4.2 % 5905-5) EOS % (test code = 2.7 % 713-8) BASO % (test code = 0.4 % 706-2) GRAN MAT x10^3(ANC) 5.00 10*3/uL 1.88-7.09 (test code = 8401303409) IMM GRAN x10^3 (test 0.03 10*3/uL 0-0.06 code = 3763974838) LYMPH x10^3 (test code 2.46 10*3/uL 1.32-3.29 = 731-0) MONO x10^3 (test code 0.34 10*3/uL 0.33-0.92 = 742-7) EOS x10^3 (test code = 0.22 10*3/uL 0.03-0.39 711-2) BASO x10^3 (test code 0.03 10*3/uL 0.01-0.07 = 704-7) Lab Interpretation Abnormal (test code = 49174-6) [facility] Strep [id number] 07:15:55 Streptococcus Group A screen negativeInfluenza B [id number] 17:33:09 Test Item Value Reference Range Interpretation Comments Influenza B Ag (test Negative Negative Childre n tend to shed code = Influenza B Ag) virus more abundantly and for longer period of time than ad ults. Therefore, test ing specimens from adults will often yiel d lower sensitivity renzo n testing specime ns from children. Influenza A [id number] 17:33:08 Test Item Value Reference Range Interpretation Comments Influenza A Ag (test Negative Negative Childre n tend to shed code = Influenza A Ag) virus more abundantly and for longer period of time than ad ults. Therefore, test ing specimens from adults will often yiel d lower sensitivity renzo n testing specime ns from children. Streptococcus A Screen Rapid w/ Reflex [id number] 17:29:00 Test Item Value Reference Range Interpretation Comments Strep A Scn (test code = Strep A Negative Negative Scn)
[2022-02-23] MEDS ORDERED: ZIPRASIDONE MESYLA 20 MG/VIAL IM ONE ×2 (15:41→16:57)
[2022-02-23] MEDS ORDERED: LORazepam 2 MG/ML VIAL ONE ×2 (15:41→17:26)
[2022-02-23] MEDS ORDERED: WATER FOR INJ,STERILE 0 ML ONE (16:57)
[2022-02-23 17:53] LABS: Absolute Lymphocytes (CBC) 2.3 K/uL (0.7-4.9); Hematocrit 44.6 % (36.0-45.0); Lymphocytes % 28.4 % (15.3-44.8); MCV 84.3 fL (80-100); MPV 8.4 fL (7.6-11.3); RBC Red Blood Cell Count 5.29 M/uL (3.86-4.86)
[2022-02-23 17:54] LABS: Urine Blood Negative (Negative); Urine Glucose Negative (Negative); Urine Protein 2+ (Negative); Urine Specific Gravity >=1.030 (1.005-1.030); Urine pH 5.5 (5.0-7.0)
[2022-02-23 18:08] LABS: ALT/SGPT 154 U/L (12-78); AST/SGOT 75 U/L (15-37); Albumin 3.6 g/dL (3.4-5.0); Alkaline Phosphatase 76 U/L (45-117); BUN Blood Urea Nitrogen 9 mg/dL (7-18); Bicarbonate 25 mmol/L (21-32); Bilirubin Direct 0.2 mg/dL (0-0.2); Bilirubin Total 0.6 mg/dL (0.2-1.0); Glomerular Filtration Rate 118 ml/min (=/>90); Glucose Level 99 mg/dL (74-106); Potassium 3.7 mmol/L (3.5-5.1); Protein, Total 8.2 g/dL (6.4-8.2); Sodium Level 139 mmol/L (136-145)
[2022-02-23 18:11] LABS: Barbiturates POSITIVE (NEGATIVE); Benzodiazepines NEGATIVE (NEGATIVE); Cocaine POSITIVE (NEGATIVE); METHAMPHETAM NEGATIVE (NEGATIVE); Methadone NEGATIVE (NEGATIVE); Opiates NEGATIVE (NEGATIVE); Phencyclidine NEGATIVE (NEGATIVE); THC Cannibis POSITIVE (NEGATIVE)
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
[2022-02-23 20:56] LABS: Protime INR 1.08
[2022-02-24 00:57] VITALS: BP 157/111; TEMP 97.7; O2SAT 100
== END 2022-02-24 00:51 | disposition home or self-care (01) ==
LOC: ER 14:53
DX: F43.29 Adjustment disorder with other symptoms (principal); R45.851 Suicidal ideations; I10 Essential (primary) hypertension; E03.9 Hypothyroidism, unspecified; Z91.010 Allergy to peanuts
CPT/HCPCS: 85025; 80048; 36415; 80320; 80329 ×2; 81025; 85610; 80076; 85730; 81003; 80307; 96374; 99283; J3486